=== PATIENT | male | born 1965 | race Caucasian/White ===

== ENCOUNTER 2018-11-15 16:05 | Inpatient (IN) | payer OTHER ==
[2018-11-15 21:52] VITALS: BMI 25.5
--- NOTE | 2018-11-15 23:11 | HP ---
CIWA Score Nausea/Vomitin-No Nausea/No Vomiting Muscle Tremors: 3 Anxiety: 4-Mod. Anxious/Guarded Agitation: 4-Moderately Restless Paroxysmal Sweats: 1-Minimal Palms Moist Orientation: 0-Oriented Tacttile Disturbances: 0-None Auditory Disturbances: 0-None Visual Disturbances: 1-Very Mild Sensitivity Headache: 0-None Present CIWA-Ar Total Score: 13 - Admission Criteria [facility]AS[facility] Guidelines: Admission for Medically Managed Detox: Requires at least one of the followin. CIWA greater than 12 2. Seizures within the past 24 hours 3. Delirium tremens within the past 24 hours 4. Hallucinations within the past 24 hours 5. Acute intervention needed for co occurring medical disorder 6. Acute intervention needed for co occurring psychiatric disorder 7. Severe withdrawal that cannot be handled at a lower level of care (continued vomiting, continued diarrhea, abnormal vital signs) requiring intravenous medication and/or fluids 8. Patient presents the following: CIWA greater than 12 Admission Criteria Met: Admission criteria met Admission [facility] Chief Complaint: c/o withdrawal sx's Allergies/Adverse Reactions: Allergies Allergy/AdvReac Type Severity Reaction Status Date / Time No Known Allergies Allergy Verified 11/15/18 21:41 History of Present Illness: 53 Y.O. MALE WITH ALCOHOLISM HERE FOR DETOX. THIS IS HIS FIRST ADMISSION HERE. REFERRED BY A FRIEND. PRESENT WITH C/O WITHDRAWAL SX'S. LAST DRINK 3 DAYS AGO. REPORTS DAILY ALCOHOL INTAKE. + CIWA, + EYE GUARD DANCE HALL. REPORTS ALCOHOL HX SINCE THE AGE OF 19. REPORTS LONGEST CLEAN TIME 6 MONTHS. RELAPSING 1 YEAR AGO. DENIES HX/O SEIZURES, BLACK OUTS, DT'S. LIVES WITH MOTHER, UNEMPLOYED, DENIES LEGALS Exam Limitations: No Limitations - Ebola screening Have you traveled outside of the country in the last 21 days: No Have you had contact with anyone from an Ebola affected area: No Do you have a fever: No - Review of Systems Constitutional: Chills, Loss of Appetite, Night Sweats, Changes in sleep EENT: reports: Dental Problems (MISSING TEETH) Respiratory: reports: Shortness of Breath Cardiac: reports: No Symptoms Reported GI: reports: Poor Fluid Intake : reports: No Symptoms Reported Musculoskeletal: reports: No Symptoms Reported Integumentary: reports: Pruritus (TO LEFT LOWER EXTREMITY), Sweating Neuro: reports: Tremors (FELT) Endocrine: reports: No Symptoms Reported Hematology: reports: No Symptoms Reported Psychiatric: reports: Orientated x3, Anxious Other Systems: Reviewed and Negative Patient History - Patient Medical History Hx Anemia: No Hx Asthma: No Hx Chronic Obstructive Pulmonary Disease (COPD): No Hx Cancer: No Hx Cardiac Disorders: No Hx Congestive Heart Failure: No Hx Hypertension: Yes (ON MEDS) Hx Hypercholesterolemia: No Hx Pacemaker: No HX Cerebrovascular Accident: No Hx Seizures: No Hx Dementia: No Hx Diabetes: No Hx Gastrointestinal Disorders: No Hx Liver Disease: No Hx Genitourinary Disorders: No Hx Renal Disease (ESRD): No Hx Thyroid Disease: No Hx Human Immunodeficiency Virus (HIV): No Hx Hepatitis C: No Hx Depression: Yes (HX/O) Hx Suicide Attempt: No Hx Bipolar Disorder: No Hx Schizophrenia: No Other Medical History: DENIES - Patient Surgical History Past Surgical History: No - PPD History Previous Implant?: Yes Documented Results: Negative w/o proof Implanted On Prior [facility] Admission?: No PPD to be Administered?: Yes - Smoking Cessation Smoking history: Never smoked Have you smoked in the past 12 months: No Hx Chewing Tobacco Use: No Initiated information on smoking cessation: No - Substance & Tx. History Hx Alcohol Use: Yes Hx Substance Use: Yes Substance Use Type: Alcohol Hx Substance Use Treatment: Yes ( [facility]) - Substances abused Alcohol Substance route: Oral Frequency: Daily Amount used: 3-4 16 OZ CANS Age of first use: 19 Date of last use: 11/11/18 Family Disease History - Family Disease History Family History: Denies Admission Physical Exam BHS - Vital Signs Vital Signs: Vital Signs - 24 hr 11/15/18 21:40 Temperature 97.5 F L Pulse Rate 80 Respiratory 16 Rate Blood Pressure 157/92 - Physical General Appearance: Yes: Mild Distress, Tremorous, Anxious HEENTM: Yes: EOMI, Normocephalic, Normal Voice, REBECA, Pharynx Normal, Nasal Congestion, Rhinorrhea, Other (MISSING TEETH) Respiratory: Yes: Chest Non-Tender, Lungs Clear, Normal Breath Sounds, No Respiratory Distress, No Accessory Muscle Use Neck: Yes: No masses,lesions,Nodules, Supple, Trachea in good position Breast: Yes: Breasts Symetrical Cardiology: Yes: Regular Rhythm, Regular Rate, S1, S2 Abdominal: Yes: Normal Bowel Sounds, Non Tender, Soft, Hernia (UMBILICAL HERNIA) Genitourinary: Yes: Within Normal Limits (NO C/O) Back: Yes: Normal Inspection Musculoskeletal: Yes: full range of Motion, Gait Steady Extremities: Yes: Normal Range of Motion, Non-Tender, Tremors Neurological: Yes: Fully Oriented, Alert, Motor Strength 5/5, Depressed Affect Integumentary: Yes: Clammy (COOL), Other (PILORECTION BLE NON PITTING EDEMA WITH VASCULAR CHANGES OF REDISH BLUSHISH SHINY SKIN WITH PRURITIC DERMATITIS- ECZEMA) - Diagnostic (1) Alcohol dependence with uncomplicated withdrawal Current Visit: Yes Status: Acute (2) HTN (hypertension) Current Visit: Yes Status: Acute Qualifiers: Hypertension type: essential hypertension Qualified Code(s): I10 - Essential (primary) hypertension (3) History of depression Current Visit: Yes Status: Chronic (4) At risk for dehydration due to poor fluid intake Current Visit: Yes Status: Acute (5) Varicose eczema Current Visit: Yes Status: Chronic (6) Venous stasis dermatitis of both lower extremities Current Visit: Yes Status: Chronic (7) Umbilical hernia Current Visit: Yes Status: Chronic Cleared for Admission S - Detox or Rehab [facility] Level of Care: Medically Managed Detox Regimen/Protocol: Librium Claeared for Rehab Admission: No Breathalyzer - Breathalyzer Breathalyzer: 0 Urine Drug Screen - Test Device Lot number: [id number] Expiration date: 08/18/20 - Control Is test valid?: Yes - Results Drug screen NEGATIVE: Yes Inpatient Rehab Admission - Rehab Decision to Admit Inpatient rehab admission?: No
[2018-11-15] MEDS ORDERED: MAG HYDROX/AL HYDROX/SIMETH 30 ML UNIT-DOSE CUP PO PRN (23:17)
[2018-11-15] MEDS ORDERED: MELATONIN 5 MG TABLETS PO PRN (23:17)
[2018-11-15] MEDS ORDERED: DICYCLOMINE HCL 10 MG CAPSULE PO PRN (23:17)
[2018-11-15] MEDS ORDERED: MAGNESIUM HYDROX 2400MG/30ML ORAL SUSPENSION 30 ML CUP PO PRN (23:17)
[2018-11-15] MEDS ORDERED: guaiFENesin 200 MG/10 ML 10 ML UNIT-DOSE CUPS PO PRN (23:17)
[2018-11-15] MEDS ORDERED: IBUPROFEN 400 MG TABLET (FP) PO PRN (23:17)
[2018-11-15] MEDS ORDERED: ONDANSETRON *ODT* 4 MG TABLET SL PRN (23:17)
[2018-11-15] MEDS ORDERED: METHOCARBAMOL 500 MG TABLET PO PRN (23:17)
[2018-11-15] MEDS ORDERED: chlordiazePOXIDE HCL 10 MG CAPSULE PO PRN (23:17)
[2018-11-15] MEDS ORDERED: MAGNESIUM CITRATE 300 ML BOTTLE PO PRN (23:17)
[2018-11-15] MEDS ORDERED: P-EPHED 60MG/TRIPROLIDI 2.5MG TABLET PO PRN (23:17)
[2018-11-15] MEDS ORDERED: BISMUTH SUBSALICYLATE 524 MG/30 ML UD PO PRN (23:17)
[2018-11-15] MEDS ORDERED: hydrOXYzine HCL 25 MG TABLET (FP) PO PRN (23:17)
[2018-11-15] MEDS ORDERED: ACETAMINOPHEN 325 MG TABLET (FP) PO PRN ×2 (23:17)
[2018-11-15] MEDS ORDERED: MENTHOL/PHENOL 1 EACH UD MM PRN (23:17)
[2018-11-16] MEDS: chlordiazePOXIDE HCL 25 MG CAPSULE PO SCH ×4 (01:13→22:31)
[2018-11-16] MEDS: PRENATAL VITAMINS W/ FOLIC ACID TABLET (FP) PO SCH (10:16)
--- NOTE | 2018-11-16 10:33 | EKG ---
Test Reason : Blood Pressure : / mmHG Vent. Rate : 091 BPM Atrial Rate : 091 BPM P-R Int : 144 ms QRS Dur : 094 ms QT Int : 420 ms P-R-T Axes : 069 067 051 degrees QTc Int : 516 ms NORMAL SINUS RHYTHM PROLONGED QT ABNORMAL ECG NO PREVIOUS ECGS AVAILABLE Confirmed by SALLY SHERWOOD, ELA (Diamond) on 11/16/2018 10:33:38 AM Referred By: PARKER Confirmed By:ELA ZAVALA MD
[2018-11-16] MEDS: HYDROCHLOROTHIAZIDE 25 MG TABLET (FP) PO SCH (11:28)
[2018-11-16 11:41] LABS: HEMATOCRIT 30.9 % (35.4-49); HEMOGLOBIN 10.4 GM/dL (11.7-16.9); MCH 32.2 pg (25.7-33.7); MCHC 33.5 g/dl (32.0-35.9); MEAN CELL VOLUME 96.1 fl (80-96); MEAN PLT VOLUME 8.8 fl (7.5-11.1); RBC 3.22 M/mm3 (4.00-5.60); WHITE BLOOD COUNT 3.3 K/mm3 (4.0-10.0)
[2018-11-16 11:50] LABS: ALBUMIN 2.7 g/dl (3.4-5.0); BILIRUBIN,TOTAL 1.6 mg/dL (0.2-1); BLOOD UREA NITROGEN 15.3 mg/dL (7-18); CALCIUM 8.7 mg/dL (8.5-10.1); CREATININE 0.5 mg/dL (0.55-1.3); POTASSIUM 3.3 mmol/L (3.5-5.1); TOT PROT 7.2 g/dl (6.4-8.2)
[2018-11-16 12:27] LABS: PLATELET COUNT 86 K/MM3 (134-434)
--- NOTE | 2018-11-16 14:12 | CONSULT ---
[facility] Psychiatric Consult - Data Date of interview: 11/16/18 Admission source: [facility] Identifying data: [employer] Supervisor approached patient concerning psychiatric consultation. Patient stated, "i'm good. I do not need to see you. Thankyou." Psychiatric consultation refused.
--- NOTE | 2018-11-16 14:40 | PN ---
[facility] CIWA - CIWA Score Nausea/Vomitin-Mild Nausea/No Vomiting Muscle Tremors: 3 Anxiety: 4-Mod. Anxious/Guarded Agitation: 2 Paroxysmal Sweats: 2 Orientation: 0-Oriented Tacttile Disturbances: 0-None Auditory Disturbances: 0-None Visual Disturbances: 0-None Headache: 0-None Present CIWA-Ar Total Score: 12 S Progress Note (SOAP) Subjective: 53 years old male first patient [facility] admission was admitted on for alcohol withdrawal sx management doing well with librium detox regimen tremor anxiety restlessness lying on bed feeling uncomfortable received librium doing ok tolerate food and fluid well Objective: 11/16/18 14:43 Vital Signs Temperature 97.3 F L 11/16/18 13:20 Pulse Rate 84 11/16/18 13:20 Respiratory Rate 18 11/16/18 13:20 Blood Pressure 127/82 11/16/18 13:20 O2 Sat by Pulse Oximetry (%) Laboratory Last Values WBC 3.3 K/mm3 (4.0-10.0) L 11/16/18 07:30 RBC 3.22 M/mm3 (4.00-5.60) L 11/16/18 07:30 Hgb 10.4 GM/dL (11.7-16.9) L 11/16/18 07:30 Hct 30.9 % (35.4-49) L 11/16/18 07:30 MCV 96.1 fl (80-96) H 11/16/18 07:30 MCH 32.2 pg (25.7-33.7) 11/16/18 07:30 MCHC 33.5 g/dl (32.0-35.9) 11/16/18 07:30 RDW 16.0 % (11.9-15.9) H 11/16/18 07:30 Plt Count 86 K/MM3 (134-434) L 11/16/18 07:30 MPV 8.8 fl (7.5-11.1) 11/16/18 07:30 Sodium 137 mmol/L (136-145) 11/16/18 07:30 Potassium 3.3 mmol/L (3.5-5.1) L 11/16/18 07:30 Chloride 102 mmol/L (98-107) 11/16/18 07:30 Carbon Dioxide 27 mmol/L (21-32) 11/16/18 07:30 Anion Gap 8 MMOL/L (8-16) 11/16/18 07:30 BUN 15.3 mg/dL (7-18) 11/16/18 07:30 Creatinine 0.5 mg/dL (0.55-1.3) L 11/16/18 07:30 Est GFR (CKD-EPI)AfAm 142.39 11/16/18 07:30 Est GFR (CKD-EPI)NonAf 122.86 11/16/18 07:30 Random Glucose 86 mg/dL (74-106) 11/16/18 07:30 Calcium 8.7 mg/dL (8.5-10.1) 11/16/18 07:30 Total Bilirubin 1.6 mg/dL (0.2-1) H 11/16/18 07:30 AST 63 U/L (15-37) H 11/16/18 07:30 ALT 26 U/L (13-61) 11/16/18 07:30 Alkaline Phosphatase 117 U/L (45-117) 11/16/18 07:30 Total Protein 7.2 g/dl (6.4-8.2) 11/16/18 07:30 Albumin 2.7 g/dl (3.4-5.0) L 11/16/18 07:30 RPR Titer Nonreactive (NONREACTIVE) 11/16/18 07:30 lab noted Assessment: 11/16/18 14:44 alcohol withdrawal sx alert limited conversation with staff 11/16/18 14:48 speech clearly Plan: continue librium detox regimen
[2018-11-16] MEDS ORDERED: cloNIDine HCL 0.1 MG TABLET PO PRN (14:47)
[2018-11-16] MEDS: THIAMINE HCL 100 MG TABLET (FP) PO SCH (22:31)
[2018-11-17] MEDS: chlordiazePOXIDE 5 MG CAPSULE PO SCH ×3 (06:14→22:15)
[2018-11-17] MEDS: HYDROCHLOROTHIAZIDE 25 MG TABLET (FP) PO SCH (10:13)
[2018-11-17] MEDS: PRENATAL VITAMINS W/ FOLIC ACID TABLET (FP) PO SCH (10:13)
--- NOTE | 2018-11-17 13:15 | PN ---
S CIWA - CIWA Score Nausea/Vomitin Muscle Tremors: 2 Anxiety: 2 Agitation: 2 Paroxysmal Sweats: No Perspiration Orientation: 0-Oriented Tacttile Disturbances: 1-Very Mild Itch/Numbness Auditory Disturbances: 0-None Visual Disturbances: 0-None Headache: 2-Mild CIWA-Ar Total Score: 11 S Progress Note (SOAP) Subjective: alert,irritable,anxious,interrupted sleep,tremor Objective: 11/17/18 13:11 Vital Signs Temperature 98.2 F 11/17/18 09:41 Pulse Rate 84 11/17/18 09:41 Respiratory Rate 18 11/17/18 09:41 Blood Pressure 103/69 11/17/18 09:41 O2 Sat by Pulse Oximetry (%) Laboratory Last Values WBC 3.3 K/mm3 (4.0-10.0) L 11/16/18 07:30 RBC 3.22 M/mm3 (4.00-5.60) L 11/16/18 07:30 Hgb 10.4 GM/dL (11.7-16.9) L 11/16/18 07:30 Hct 30.9 % (35.4-49) L 11/16/18 07:30 MCV 96.1 fl (80-96) H 11/16/18 07:30 MCH 32.2 pg (25.7-33.7) 11/16/18 07:30 MCHC 33.5 g/dl (32.0-35.9) 11/16/18 07:30 RDW 16.0 % (11.9-15.9) H 11/16/18 07:30 Plt Count 86 K/MM3 (134-434) L 11/16/18 07:30 MPV 8.8 fl (7.5-11.1) 11/16/18 07:30 Sodium 137 mmol/L (136-145) 11/16/18 07:30 Potassium 3.3 mmol/L (3.5-5.1) L 11/16/18 07:30 Chloride 102 mmol/L (98-107) 11/16/18 07:30 Carbon Dioxide 27 mmol/L (21-32) 11/16/18 07:30 Anion Gap 8 MMOL/L (8-16) 11/16/18 07:30 BUN 15.3 mg/dL (7-18) 11/16/18 07:30 Creatinine 0.5 mg/dL (0.55-1.3) L 11/16/18 07:30 Est GFR (CKD-EPI)AfAm 142.39 11/16/18 07:30 Est GFR (CKD-EPI)NonAf 122.86 11/16/18 07:30 Random Glucose 86 mg/dL (74-106) 11/16/18 07:30 Calcium 8.7 mg/dL (8.5-10.1) 11/16/18 07:30 Total Bilirubin 1.6 mg/dL (0.2-1) H 11/16/18 07:30 AST 63 U/L (15-37) H 11/16/18 07:30 ALT 26 U/L (13-61) 11/16/18 07:30 Alkaline Phosphatase 117 U/L (45-117) 11/16/18 07:30 Total Protein 7.2 g/dl (6.4-8.2) 11/16/18 07:30 Albumin 2.7 g/dl (3.4-5.0) L 11/16/18 07:30 RPR Titer Nonreactive (NONREACTIVE) 11/16/18 07:30 Assessment: 11/17/18 13:14 withdrawal symptom Plan: continue detox librium regimen,k dur 20 meq po daily,initial k is 3.3
[2018-11-17] MEDS: POTASSIUM CHLORIDE TABS 20 MEQ TABLET.ER (FP) PO SCH (13:31)
[2018-11-17] MEDS: THIAMINE HCL 100 MG TABLET (FP) PO SCH (22:15)
[2018-11-18] MEDS ORDERED: chlordiazePOXIDE HCL 10 MG CAPSULE PO PRN
[2018-11-18] MEDS ORDERED: chlordiazePOXIDE HCL 10 MG CAPSULE PO SCH (05:00)
[2018-11-18 09:06] VITALS: BP 128/78; PULSE 95; TEMP 98.5
--- NOTE | 2018-11-18 09:35 | DS ---
[facility] Detox Discharge Summary Admission Date: 11/16/18 Discharge Date: 11/18/18 - History Present History: Alcohol Dependence Additional Comments: Pt is a 53 y/o male admitted to detox for alcohol use disorder and discharged today. Pt scheduled for discharge tomorrow but wants to leave today stating due to preparation for Immigration citizen appointment. As per counselor note, pt declined rehab at this time and is going home.however, pt was given information for referral to [facility] rehab to follow up after discharge. Pertinent Past History: varicose veins venous stasis dermatitis Hypertension Depression - Physical Exam Results Vital Signs: Alert o x 3 Ambulates with steady gait. NAD Vital Signs Temperature 98.5 F 11/18/18 09:05 Pulse Rate 95 H 11/18/18 09:05 Respiratory Rate 18 11/18/18 09:05 Blood Pressure 128/78 11/18/18 09:05 O2 Sat by Pulse Oximetry (%) Pertinent Admission Physical Exam Findings: Laboratory Tests 11/16/18 11/16/18 11/16/18 07:30 07:30 07:30 WBC 3.3 L RBC 3.22 L Hgb 10.4 L Hct 30.9 L MCV 96.1 H MCH 32.2 MCHC 33.5 RDW 16.0 H Plt Count 86 L MPV 8.8 Sodium 137 Potassium 3.3 L Chloride 102 Carbon Dioxide 27 Anion Gap 8 BUN 15.3 Creatinine 0.5 L Est GFR (CKD-EPI)AfAm 142.39 Est GFR (CKD-EPI)NonAf 122.86 Random Glucose 86 Calcium 8.7 Total Bilirubin 1.6 H AST 63 H ALT 26 Alkaline Phosphatase 117 Total Protein 7.2 Albumin 2.7 L RPR Titer Nonreactive hypokalemia Low H/H-Borderline Anemia pt was instructed to follow up with his primary care provider Dr. Willard Flannery with copy of lab results for repeat labs. - Treatment Hospital Course: Detox Protocol Followed, Detoxed Safely, Responded well, Discharged Condition Good - Medication Discharge Medications: Ambulatory Orders Hydrochlorothiazide 25 mg PO DAILY 11/15/18 - Diagnosis (1) Alcohol dependence with uncomplicated withdrawal Status: Acute (2) HTN (hypertension) Status: Chronic Qualifiers: Hypertension type: essential hypertension Qualified Code(s): I10 - Essential (primary) hypertension (3) History of depression Status: Chronic (4) Umbilical hernia Status: Chronic (5) Venous stasis dermatitis of both lower extremities Status: Chronic - AMA Did Patient Leave Against Medical Advice: No
[2018-11-18] MEDS: HYDROCHLOROTHIAZIDE 25 MG TABLET (FP) PO SCH (10:50)
[2018-11-18] MEDS: PRENATAL VITAMINS W/ FOLIC ACID TABLET (FP) PO SCH (10:50)
[2018-11-18] MEDS: POTASSIUM CHLORIDE TABS 20 MEQ TABLET.ER (FP) PO SCH (10:50)
[2018-11-19] MEDS ORDERED: chlordiazePOXIDE HCL 10 MG CAPSULE PO ONE (05:00)
== END 2018-11-18 10:05 | disposition home or self-care (01) | DRG 897 ==
LOC: YASAS 16:05 → Y3N 11-16 00:02
PROVIDERS: ADMIT Surgery; ATTEND Surgery
PROC: HZ2ZZZZ Detoxification Services for Substance Abuse Treatment (ICD-10-PCS; principal; 2018-11-16)
DX: F10.230 Alcohol dependence with withdrawal, uncomplicated (principal); I10 Essential (primary) hypertension; I83.10 Varicose veins of unspecified lower extremity with inflammation; I87.2 Venous insufficiency (chronic) (peripheral); K42.9 Umbilical hernia without obstruction or gangrene; Z86.59 Personal history of other mental and behavioral disorders; Z91.89 Other specified personal risk factors, not elsewhere classified
CPT/HCPCS: 36415; 80053; 85027; 86480; 86593; 93005; 93010